=== PATIENT | male | born 1965 | race African-American/Black ===

== ENCOUNTER 2018-06-26 10:30 | Inpatient (IN) | payer OTHER ==
[~2018-06-26] VITALS: Ht 177.8 cm; Wt 98.8 kg
[~2018-06-26 10:30] MED LIST: AMLO-150 PO; ATOR40TA78 PO; CHOL10003 PO; CYCL-259 PO; IBUP-1223 PO; OXYC5CAP2 PO
[2018-06-26] MEDS ORDERED: BUPIVACAINE/PF-EPI 0.5% 1:200K ONE (10:48)
[2018-06-26] MEDS ORDERED: BACITRACIN 50,000 UNIT ONE (10:48)
[2018-06-26] MEDS ORDERED: VANCOMYCIN 1,000 MG ONE (10:48)
[2018-06-26] MEDS ORDERED: THROMBIN 5,000 UNIT VIAL TP ONE (10:48)
[2018-06-26] MEDS ORDERED: BACITRACIN OINT 500U/GM, 15 GM ONE (10:48)
[2018-06-26] MEDS ORDERED: methylPREDNISolone *ACETATE* 40 MG/ML ONE (10:48)
[2018-06-26 11:53] LABS: INTERNATIONAL NORMALIZED RATIO 1.07 (0.93-1.1); PROTHROMBIN TIME 11.3 Seconds (9.6-11.5)
[2018-06-26] MEDS ORDERED: ONDANSETRON ODT 8 MG PO ONE (12:00)
[2018-06-26] MEDS ORDERED: ACETAMINOPHEN 500 MG TABLET PO ONE (12:00)
[2018-06-26] MEDS ORDERED: GABAPENTIN 300 MG CAPSULE PO ONE (12:00)
[2018-06-26] MEDS ORDERED: OxyconTIN ER 20 MG TAB.ER PO ONE (12:00)
[2018-06-26] MEDS ORDERED: DIAZEPAM 5 MG TABLET PO ONE (12:00)
[2018-06-26] MEDS ORDERED: LIDOCAINE-MPF 1%, 2ML ONE (12:03)
[2018-06-26] MEDS ORDERED: LACTATED RINGERS 1,000 ML IV SCH (12:20)
[2018-06-26] MEDS ORDERED: LIDOCAINE-MPF 1%, 2ML INFIL ONE (12:30)
[2018-06-26] MEDS ORDERED: FENTANYL PF 100 MCG/2ML ONE ×3 (14:21→17:44)
[2018-06-26] MEDS ORDERED: MIDAZOLAM 1 MG/ML, 2ML ONE (14:21)
[2018-06-26] MEDS ORDERED: FENTANYL PF 100 MCG/2ML IV PRN (14:30)
[2018-06-26] MEDS ORDERED: PROCHLORPERAZINE 5 MG/ML, 2ML IV PRN (14:30)
[2018-06-26] MEDS ORDERED: hydrALAzine 20 MG/ML, 1ML IV PRN (14:30)
[2018-06-26] MEDS ORDERED: HYDROmorphone 1 MG/ML, 1ML IV PRN (14:30)
[2018-06-26] MEDS ORDERED: OXYcodone 5 MG/5 ML ORAL.SOL UDC PO PRN (14:30)
[2018-06-26] MEDS ORDERED: LABETALOL 5MG/ML, 20ML IV PRN (14:30)
[2018-06-26] MEDS ORDERED: MEPERIDINE/PF 25MG/0.5ML IVPush PRN (14:30)
[2018-06-26] MEDS ORDERED: DIPHENHYDRAMINE 50 MG/ML, 1ML IVPush PRN (14:30)
[2018-06-26] MEDS ORDERED: KETOROLAC 30 MG/1 ML ONE (15:18)
[2018-06-26] MEDS ORDERED: PROPOFOL 10 MG/ML, 20ML ONE (16:12)
[2018-06-26] MEDS ORDERED: SUCCINYLCHOLINE 20 MG/ML, 10ML ONE (16:12)
[2018-06-26] MEDS ORDERED: ROCURONIUM 10MG/ML,5ML ONE (16:12)
[2018-06-26] MEDS ORDERED: ONDANSETRON 2MG/ML, 2ML ONE (16:12)
[2018-06-26] MEDS ORDERED: CEFAZOLIN 1,000 MG ONE (16:12)
[2018-06-26] MEDS ORDERED: GLYCOPYRROLATE 0.2MG/1ML, 5ML ONE (16:12)
[2018-06-26] MEDS ORDERED: NEOSTIGMINE 1 MG/ML, 10ML ONE (16:12)
[2018-06-26] MEDS ORDERED: DEXAMETHASONE 4 MG/ML, 1ML ONE (16:12)
[2018-06-26] MEDS: NS + 20MEQ KCL 1,000 ML IV SCH (18:00)
[2018-06-26] MEDS ORDERED: DIPHENHYDRAMINE 50 MG CAPSULE PO PRN (18:00)
[2018-06-26] MEDS ORDERED: BISACODYL 10 MG SUPP PR PRN (18:00)
[2018-06-26] MEDS ORDERED: SENNA/DOCUSATE TABLET PO PRN (18:00)
[2018-06-26] MEDS ORDERED: PHARMACY MAY ADJ FOR RENAL FX MC PRN (18:00)
[2018-06-26] MEDS ORDERED: ONDANSETRON 2MG/ML, 2ML IVPush PRN (18:00)
[2018-06-26] MEDS ORDERED: LABETALOL 5MG/ML, 20ML IVPush PRN (18:00)
[2018-06-26] MEDS ORDERED: ZOLPIDEM 5MG TABLET PO PRN (18:00)
[2018-06-26] MEDS ORDERED: MAGNESIUM HYDROXIDE 8%, 30ML UDC PO PRN (18:00)
[2018-06-26] MEDS ORDERED: LABETALOL 20 MG/4 ML ONE (18:43)
[2018-06-26] MEDS: KETOROLAC 30 MG/1 ML IVPush SCH (22:29)
[2018-06-27 00:02] VITALS: BP 119/82
[2018-06-27] MEDS: NS + 20MEQ KCL 1,000 ML IV SCH ×2 (00:05→23:30)
[2018-06-27] MEDS: CEFAZOLIN PMX 1GM/50ML 50 ML IVPB SCH ×2 (00:05→08:09)
[2018-06-27] MEDS ORDERED: METHOCARBAMOL 750 MG in DEXTROSE 5% 100 ML IV PRN (02:00)
[2018-06-27 04:04] VITALS: BP 125/70
[2018-06-27] MEDS: KETOROLAC 30 MG/1 ML IVPush SCH ×3 (05:52→22:32)
[2018-06-27 06:57] VITALS: BP 120/72
[2018-06-27] MEDS: CHOLECALCIFEROL 1,000 UNIT TABLET PO SCH (08:10)
[2018-06-27] MEDS: AMLODIPINE 5 MG TABLET PO SCH (08:10)
[2018-06-27] MEDS: ATORVASTATIN 40 MG TABLET PO SCH (08:12)
[2018-06-27] MEDS ORDERED: OXYC-302 PO (11:12)
[2018-06-27] MEDS: OXYcodone/APAP 5/325MG TABLET PO PRN ×2 (11:32→20:41)
[2018-06-27 13:00] VITALS: BP 127/80
[2018-06-27 20:03] VITALS: BP 120/74
[2018-06-28 01:05] VITALS: BP 122/75
[2018-06-28] MEDS: KETOROLAC 30 MG/1 ML IVPush SCH (05:35)
[2018-06-28 06:44] VITALS: BP 130/79
[2018-06-28] MEDS: AMLODIPINE 5 MG TABLET PO SCH (07:53)
[2018-06-28] MEDS: CHOLECALCIFEROL 1,000 UNIT TABLET PO SCH (07:53)
[2018-06-28] MEDS: OXYcodone/APAP 5/325MG TABLET PO PRN (07:54)
[2018-06-28] MEDS: ATORVASTATIN 40 MG TABLET PO SCH (07:54)
[2018-06-28] MEDS: NS + 20MEQ KCL 1,000 ML IV SCH (07:55)
[2018-06-29] MEDS ORDERED: IBUPROFEN 800 MG TABLET PO PRN (09:00)
== END 2018-06-28 09:19 | disposition home or self-care (01) | DRG 460 ==
LOC: EDSEX 10:50 → ORIP 10:50 → 4NOR 19:08 → DCLOUNGE 06-28 09:08
PROVIDERS: ADMIT Neurological Surgery; ATTEND Neurological Surgery
PROC: 4A11X4G Monitoring of Peripheral Nervous Electrical Activity, Intraoperative, External Approach (ICD-10-PCS; 2018-06-26)
PROC: 0SG30J1 Fusion of Lumbosacral Joint with Synthetic Substitute, Posterior Approach, Posterior Column, Open Approach (ICD-10-PCS; principal; 2018-06-26 14:00)
DX: M54.16 Radiculopathy, lumbar region (principal); M48.07 Spinal stenosis, lumbosacral region; E78.5 Hyperlipidemia, unspecified; I10 Essential (primary) hypertension
CPT/HCPCS: 36415; 72100; J3490; 85610; 85730; 86850; 86900; G0378; J0690; J1100; J1885; J2250; J2270; J2405; J2704; J2710; J3010; J3370; J3480; Q0162; C1762; J0330; J1030; J2800; J7120

== ENCOUNTER 2020-04-30 08:29 | Day surgery (SDC) | payer OTHER ==
[~2020-04-30] VITALS: Ht 177.8 cm; Wt 93.6 kg
[~2020-04-30 08:29] MED LIST changes: +OXYC-302 PO
[2020-04-30] MEDS ORDERED: LACTATED RINGERS 1,000 ML IV SCH (09:31)
[2020-04-30] MEDS ORDERED: CHOL10003 PO (09:57)
[2020-04-30] MEDS ORDERED: TRAM50TA2 PO (09:57)
[2020-04-30] MEDS ORDERED: GABA600T7 PO (09:57)
[2020-04-30] MEDS ORDERED: DIAZ5TAB PO (09:57)
[2020-04-30] MEDS ORDERED: CHLORHEXIDINE 15 ML UDC MM ONE (10:00)
[2020-04-30] MEDS ORDERED: LIDOCAINE-MPF 1%, 2ML INFIL ONE (10:00)
[2020-04-30 10:06] VITALS: BP 132/84
[2020-04-30] MEDS ORDERED: FENTANYL PF 250 MCG/5ML ONE (10:30)
[2020-04-30] MEDS ORDERED: MIDAZOLAM 1 MG/ML, 2ML ONE (10:30)
[2020-04-30] MEDS ORDERED: methylPREDNISolone *ACETATE* 40 MG/ML ONE (10:39)
[2020-04-30] MEDS ORDERED: BUPIVACAINE/PF 0.5% ONE (10:39)
[2020-04-30] MEDS ORDERED: BACITRACIN OINT 500U/GM, 15 GM ONE (10:40)
[2020-04-30] MEDS ORDERED: BACITRACIN 50,000 UNIT ONE (10:40)
[2020-04-30] MEDS ORDERED: EPINEPHRINE 1 MG/ML, 1ML ONE (10:40)
[2020-04-30] MEDS ORDERED: KETAMINE 10 MG/ML, 20ML ONE (11:55)
[2020-04-30] MEDS ORDERED: CEFAZOLIN 1,000 MG ONE (12:43)
[2020-04-30] MEDS ORDERED: ROCURONIUM 10MG/ML,5ML ONE (12:43)
[2020-04-30] MEDS ORDERED: NEOSTIGMINE 1 MG/ML, 10ML ONE (12:43)
[2020-04-30] MEDS ORDERED: GLYCOPYRROLATE 0.2MG/1ML, 5ML ONE (12:43)
[2020-04-30] MEDS ORDERED: DEXAMETHASONE 4 MG/ML, 1ML ONE (12:43)
[2020-04-30] MEDS ORDERED: PROPOFOL 10 MG/ML, 20ML ONE (12:43)
[2020-04-30] MEDS ORDERED: ONDANSETRON 2MG/ML, 2ML ONE (12:43)
[2020-04-30] MEDS ORDERED: CEPH-368 PO (13:04)
[2020-04-30] MEDS ORDERED: LABETALOL 5MG/ML, 20ML ONE (13:10)
[2020-04-30] MEDS: LABETALOL 5MG/ML, 20ML IV PRN ×2 (13:15→13:32)
[2020-04-30] MEDS ORDERED: PROMETHAZINE 25 MG/ML, 1ML IVPush PRN (13:30)
[2020-04-30] MEDS ORDERED: HYDROmorphone 1 MG/ML, 1ML INJ IVPush PRN (13:30)
[2020-04-30] MEDS ORDERED: MEPERIDINE/PF 25MG/0.5ML IVPush PRN (13:30)
[2020-04-30] MEDS ORDERED: OXYcodone 5 MG/5 ML ORAL.SOL UDC PO PRN (13:30)
[2020-04-30] MEDS ORDERED: FENTANYL PF 100 MCG/2ML ONE (13:33)
[2020-04-30] MEDS ORDERED: OXYcodone 5 MG/5 ML ORAL.SOL UDC ONE (13:33)
[2020-04-30] MEDS: FENTANYL PF 100 MCG/2ML IV PRN ×2 (13:45→14:03)
== END 2020-04-30 15:40 | disposition home or self-care (01) ==
LOC: OUT 08:29
PROVIDERS: ATTEND Neurological Surgery
DX: M51.16 Intervertebral disc disorders with radiculopathy, lumbar region (principal); I10 Essential (primary) hypertension; E78.5 Hyperlipidemia, unspecified; I25.10 Atherosclerotic heart disease of native coronary artery without angina pectoris; Z79.891 Long term (current) use of opiate analgesic; Z79.899 Other long term (current) drug therapy; Z98.1 Arthrodesis status; Z82.61 Family history of arthritis
CPT/HCPCS: 63030; 72100; J0171; J0690; J1030; J1100; J2250; J2405; J2704; J2710; J3010; J7120